=== PATIENT | male | born 1975 | race Caucasian/White ===

== ENCOUNTER 2017-01-21 09:25 | Emergency (ER) | payer BC ==
[~2017-01-21] VITALS: Ht 177.8 cm; Wt 93.2 kg
[2017-01-21] MEDS ORDERED: MOTRIN800 MG PO (11:30)
[2017-01-21 11:38] VITALS: BP 127/81
== END 2017-01-21 11:38 | disposition home or self-care (01) ==
LOC: EME 09:25
DX: S92.511A Displaced fracture of proximal phalanx of right lesser toe(s), initial encounter for closed fracture (principal); W22.09XA Striking against other stationary object, initial encounter; Z88.0 Allergy status to penicillin
CPT/HCPCS: 73630; 99281; 99283